=== PATIENT | female | born 1980 | race Caucasian/White ===

== ENCOUNTER 2019-04-13 16:38 | Outpatient (CLI) | payer OTHER, SELFPAY ==
[2019-04-13 17:00] LABS: Hematocrit 42.1 % (37.0-47.0); Hemoglobin 14.2 g/dL (12.0-15.0); Mean Corpuscular HGB Conc 33.7 g/dl (32-36); Mean Corpuscular Hemoglobin 31.3 pg (26-34); Mean Corpuscular Volume 92.7 fl (80-100); Mean Platelet Volume 9.7 fl (7.4-10.4); Platelet Count Result 166 k/mm3 (150-375); Red Blood Count 4.54 M/mm3 (4.2-5.4); Red Cell Distribution Width 11.8 % (11.5-14.5); White Blood Count 6.3 K/mm3 (4.5-10.0)
[2019-04-13 17:11] LABS: Alanine Aminotransferase 25 U/L (4-35); Albumin Level 3.9 g/dL (3.5-5.1); Alkaline Phosphatase 60 U/L (38-126); Aspartate Amino Transferase 26 U/L (14-36); Bilirubin,Total 0.8 mg/dL (0.2-1.3); Blood Urea Nitrogen 14 mg/dL (7-17); Calcium 8.4 mg/dL (8.4-10.2); Carbon Dioxide 21 mmol/L (22-30); Chloride 101 mmol/L (98-107); Estimated Glomerular Filt Rate > 60; Glucose 92 mg/dL (65-105); Lipase 130 U/L (23-300); Potassium 3.7 mmol/L (3.4-5.0); Sodium 135 mmol/L (137-145)
== END 2019-04-13 16:39 | disposition home or self-care (01) ==
LOC: ANHLAB 16:41
PROVIDERS: PCP Family Medicine; Visit Provider Physician Assistant
DX: R10.9 Unspecified abdominal pain (principal)
CPT/HCPCS: 36415; 80053; 83690; 85027

== ENCOUNTER 2020-02-01 14:57 | Outpatient (CLI) | payer OTHER, SELFPAY ==
[2020-02-01 16:00] LABS: Basophils Absolute Auto 0.1 K/mm3 (0.0-0.1); Basophils Percent Auto 0.4 % (0.2-1.2); Eosinophils Percent Auto 0.2 % (0-4.4); Hematocrit 41.7 % (37.0-47.0); Hemoglobin 14.6 g/dL (12.0-15.0); Immature Granulocyte Absolute 0.05 K/mm3 (0.00-0.031); Immature Granulocyte Percent A 0.4 % (0-0.5); Lymphocytes Absolute Auto 1.57 K/mm3 (0.9-3.2); Lymphocytes Percent Auto 11.9 % (18.3-44.2); Mean Corpuscular Hemoglobin 31.8 pg (26-34); Mean Corpuscular Volume 90.8 fl (80-100); Mean Platelet Volume 9.6 fl (7.4-10.4); Monocytes Absolute Auto 0.9 K/mm3 (0.1-0.6); Monocytes Percent Auto 6.9 % (2.6-8.5); Neutrophils Absolute Auto 10.6 K/mm3 (1.3-6.7); Neutrophils Percent Auto 80.2 % (45.5-73.1); Platelet Count Result 210 k/mm3 (150-375); Red Blood Count 4.59 M/mm3 (4.2-5.4); Red Cell Distribution Width 11.3 % (11.5-14.5); White Blood Count 13.2 K/mm3 (4.5-10.0)
[2020-02-01 16:12] LABS: Alanine Aminotransferase 18 U/L (4-35); Albumin Level 4.4 g/dL (3.5-5.1); Alkaline Phosphatase 79 U/L (38-126); Anion Gap 11 mmol/L (8-16); Aspartate Amino Transferase 21 U/L (14-36); Bilirubin,Total 1.1 mg/dL (0.2-1.3); Blood Urea Nitrogen 12 mg/dL (7-17); Calcium 9.7 mg/dL (8.4-10.2); Carbon Dioxide 23 mmol/L (22-30); Chloride 100 mmol/L (98-107); Estimated Glomerular Filt Rate > 60; Glucose 104 mg/dL (65-105); Potassium 4.2 mmol/L (3.4-5.0); Sodium 134 mmol/L (137-145)
== END 2020-02-01 14:58 | disposition home or self-care (01) ==
PROVIDERS: PCP Family Medicine; Visit Provider Nurse Practitioner Family
DX: N39.0 Urinary tract infection, site not specified (principal); R10.9 Unspecified abdominal pain; R31.9 Hematuria, unspecified
CPT/HCPCS: 36415; 80053; 85025; 87077; 87086; 87088; 87186

== ENCOUNTER 2020-02-02 07:57 | Emergency (ER) | payer OTHER, SELFPAY ==
[2020-02-02] VITALS (14 sets, daily range): BP systolic 90–105; BP diastolic 52–69; PULSE 65–108; RESP 15–20; TEMP 36.6; O2SAT 94–98
--- NOTE | ~2020-02-02 | CT_ITS ---
EXAMINATION: CT abdomen pelvis w con DATE: 02/02/2020 09:25 INDICATION: Left upper quadrant abdominal pain. Right flank pain. TECHNIQUE: Computed tomography (CT) of the abdomen and pelvis was performed with 100 mL Omnipaque 350 intravenous contrast. Automated exposure control and iterative reconstruction technique were employe d. The dose-length product was 1130.01 mGy-cm. COMPARISON: None. FINDINGS: The visualized portions of the lung bases demonstrate mild atelectasis. No pleural effusion . The heart size is normal. No pericardial effusion. There is a small sliding hiatal hernia. The live r, gallbladder, spleen, pancreas, adrenal glands, and left kidney are normal. There is moderate atrop hy of the right kidney. There is heterogeneous enhancement of the right kidney, and there is urotheli al thickening in the right renal pelvis, consistent with pyelonephritis. There is asymmetric edema ar ound the right kidney. There is no urolithiasis. The bladder is not well distended. Bladder wall thic kening is noted, consistent with cystitis. There are no dilated loops of bowel. The appendix is alexsander l. There are no pathologically enlarged lymph nodes. There is no free intraperitoneal fluid. There is mild lumbar spondylosis. IMPRESSION: 1. Cystitis and right-sided pyelonephritis. Moderate atrophy of right kidney. 2. Small sliding hiatal hernia. Reviewed, dictated and finalized at location A. MACHINE OPERATOR
--- NOTE | 2020-02-02 08:21 | ED.FEVER ---
HPI - Fever General Chief Complaint: Fever Stated Complaint: fever,low back pain Time Seen by Provider: 02/02/20 07:59 History of Present Illness HPI Narrative: Patient is a 39-year-old female who presents ER with nausea and fever. Patient has been having dysuria and hematuria over last few days. She went and saw her PCP yesterday and symptoms persisted and was diagnosed with a UTI. She was started on ciprofloxacin. She reports 5 fever since being seen by the doctor. She continues to feel nauseated but has not had any vomiting. No chest pain or chest pressure. She reports mild abdominal discomfort in the left quadrant and some mild right flank pain. No alleviating factors for her symptoms. Related Data Allergies Allergy/AdvReac Type Severity Reaction Status Date / Time No Known Allergies Allergy Verified 02/02/20 08:05 Review of Systems Review of Systems: All systems reviewed & are unremarkable except as noted in HPI and below Constitutional: Constitutional: Reports chills, Reports fatigue and Reports fever(s) ENT: Denies nasal congestion and Denies sore throat Cardiovascular: Cardiovascular: Denies chest pain and Denies radiating jaw, neck or arm pain Respiratory: Respiratory: Denies cough, Denies dyspnea and Denies wheezing Gastrointestinal: Gastrointestinal: Reports abdominal pain, Denies constipation, Denies diarrhea, Reports nausea and Denies vomiting Genitourinary: Genitourinary: Reports hematuria, Reports nocturia, Reports dysuria, Reports flank pain and Denies urinary incontinence PMFSH Past Medical History Medical History (Updated 02/02/20 @ 11:21 by Shashi Archuleta MD) Depression BRE (generalized anxiety disorder) Varicose veins of legs Surgical History Surgical History (Updated 02/02/20 @ 08:22 by Shashi Archuleta MD) History of kidney surgery Family History Family History Mother Family history of hypothyroidism Social History Social History (Updated 02/01/20 @ 14:36 by Maritza Jacob) Smoking status: Former smoker Smoking end date: 02/11/17 Alcohol intake: current Substance use: never Gender identity (if verbalized by the patient): Female Exam Narrative: Exam Narrative: GENERAL: Well-appearing, well-nourished, and in no acute distress. HEAD: Normocephalic, atraumatic. CHEST: Clear to auscultation. No respiratory distress. HEART: Regular rate and rhythm. Normal peripheral pulses. ABDOMEN: Soft, mild tenderness left upper quadrant of the abdomen without guarding, nondistended, normal active bowel sounds. Mild right CVA tenderness EXTREMITIES: Normal range of motion. No edema. SKIN: Warm, dry, no rash. NEURO: Alert and oriented x3. PSYCH: Normal mood and affect. 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 Added ceftriaxone here. Recommend continuing Cipro. Will discharge with antiemetics and pain control. Vital Signs Vital signs: Vital Signs Temperature 97.9 F 02/02/20 08:03 Pulse Rate 108 H 02/02/20 08:03 Respiratory Rate 20 02/02/20 08:03 Blood Pressure 101/69 02/02/20 08:03 Pulse Oximetry 97 02/02/20 08:03 Temperature 97.9 F 02/02/20 08:03 Pulse Rate 82 02/02/20 09:41 Respiratory Rate 15 02/02/20 09:41 Blood Pressure 105/54 L 02/02/20 09:41 Pulse Oximetry 95 02/02/20 09:45 MDM - Fever Lab Data Result diagrams: 02/02/20 08:43 02/02/20 08:43 Labs: Lab Results 02/02/20 02/02/20 02/02/20 Range/Units 08:24 08:43 08:43 WBC 16.6 H (4.5-10.0) K/mm3 RBC 4.09 L (4.2-5.4) M/mm3 Hgb 13.2 (12.0-15.0) g/dL Hct 37.4 (37.0-47.0) % MCV 91.4 (80-100) fl MCH 32.3 (26-34) pg MCHC 35.3 (32-36) g/dl RDW 11.4 L (11.5-14.5) % Plt Count 162 (150-375) k/mm3 MPV 9.3 (7.4-10.4) fl Immature Gran % (Auto) 0.7 H (0-0.5) % Neut % (Auto) 85.7 H (45.5-73.1) % Lymph %
[2020-02-02] MEDS: SODIUM CHLORIDE 0.9% IV 1,000 ML 999 ML IV CONT (08:29)
[2020-02-02] MEDS: ONDANSETRON INJ 4 MG/2 ML VIAL IV PUSH (08:29)
[2020-02-02 08:40] LABS: Add Urine Microscopic? YES; Appearance Urine Cloudy (Clear); Bacteria Urine 3+ /hpf; Bilirubin Urine Negative (Negative); Blood Urine 2+ (Negative); Color Urine Amber (Yellow); Glucose Urine UA Negative (Negative); Ketones Urine Negative (Negative); Leukocyte Esterase Ur 1+ LEU/UL (Negative); Mucus Urine Few /lpf; Nitrate Urine Negative (Negative); Protein Urine 2+ mg/dL (Negative); RBC Urine 21-50 /hpf (0-2); Specific Grav Ur 1.025 (1.001-1.035); Squamous Epithelial Cell Urine Many /hpf (Few); WBC Urine >75 /hpf
--- NOTE | 2020-02-02 08:41 | PC.NURSE ---
BLOOD REJECTED FROM SHEREE CORTÉS IN ROOM REDRAWING.
[2020-02-02 08:49] LABS: Basophils Percent Auto 0.2 % (0.2-1.2); Hematocrit 37.4 % (37.0-47.0); Hemoglobin 13.2 g/dL (12.0-15.0); Immature Granulocyte Absolute 0.11 K/mm3 (0.00-0.031); Immature Granulocyte Percent A 0.7 % (0-0.5); Lymphocytes Absolute Auto 0.66 K/mm3 (0.9-3.2); Mean Corpuscular HGB Conc 35.3 g/dl (32-36); Mean Corpuscular Hemoglobin 32.3 pg (26-34); Mean Corpuscular Volume 91.4 fl (80-100); Mean Platelet Volume 9.3 fl (7.4-10.4); Monocytes Absolute Auto 1.6 K/mm3 (0.1-0.6); Monocytes Percent Auto 9.4 % (2.6-8.5); Neutrophils Absolute Auto 14.2 K/mm3 (1.3-6.7); Neutrophils Percent Auto 85.7 % (45.5-73.1); Platelet Count Result 162 k/mm3 (150-375); Red Blood Count 4.09 M/mm3 (4.2-5.4); Red Cell Distribution Width 11.4 % (11.5-14.5); White Blood Count 16.6 K/mm3 (4.5-10.0)
[2020-02-02 09:15] LABS: Anion Gap 9 mmol/L (8-16); Blood Urea Nitrogen 13 mg/dL (7-17); Calcium 8.6 mg/dL (8.4-10.2); Carbon Dioxide 20 mmol/L (22-30); Chloride 105 mmol/L (98-107); Estimated CRCL calculation 82 ml/min; Estimated Glomerular Filt Rate > 60; Glucose 127 mg/dL (65-105); Sodium 134 mmol/L (137-145)
[2020-02-02 09:52] LABS: Potassium 3.3 mmol/L (3.4-5.0)
== END 2020-02-02 11:44 | disposition home or self-care (01) ==
PROVIDERS: Emergency Provider Emergency Medicine; PCP Family Medicine
DX: N12 Tubulo-interstitial nephritis, not specified as acute or chronic (principal); F32.9 Major depressive disorder, single episode, unspecified; F41.9 Anxiety disorder, unspecified
CPT/HCPCS: 36415; 74177; 80048; 81001; 81025; 85025; 96361; 96365; 96375; 99284; J0696; J2405; J7030; Q9967

== ENCOUNTER 2020-07-18 07:19 | Emergency (ER) | payer OTHER, SELFPAY ==
[2020-07-18 07:23] VITALS: BP 120/88; PULSE 69; RESP 20; TEMP 36.3; O2SAT 100
--- NOTE | 2020-07-18 07:34 | ED.ALLEREA ---
HPI - Allergic Reaction General Chief complaint: Allergic Reaction Stated complaint: rash Time Seen by Provider: 07/18/20 07:32 Source: patient and family Mode of arrival: ambulatory Limitations: no limitations History of Present Illness HPI narrative: Patient is a 40-year-old female who presents for evaluation of possible allergic reaction. Patient states that she has had worsening itchiness, swelling in her hands and feet over the past 5 days. Patient states that she has no of abnormal food exposures or no history of food or drug allergies, but has had hives on all of her extremities as well. She denies any cough or shortness of breath. No nausea, vomiting or diarrhea. No history of anaphylaxis. Patient states that she recently had a varicose vein procedure in her left lower leg 5 days ago, as well as Botox injections into her forehead 4 days ago. Patient denies any difficulty with movement. She denies weakness. She does report tingling in her hands and feet. No calf pain. No dry mouth. No blurry vision. Patient does state that she ate a spicy chicken sandwich from [employer] and does not have a history of overeating 1 of those before. She denies any new soaps, lotions or detergents. Related Data Allergies Allergy/AdvReac Type Severity Reaction Status Date / Time No Known Allergies Allergy Verified 07/18/20 07:33 Review of Systems Review of Systems: Narrative: CONSTITUTIONAL: Denies fever, chills, or sweats. EYES: Denies visual changes, redness, or discharge. ENT: Denies rhinorrhea, congestion, sore throat, or otalgia. CARDIOVASCULAR: Denies chest pain, palpitations, or edema. RESPIRATORY: Denies cough or dyspnea. GASTROINTESTINAL: Denies abdominal pain, nausea, vomiting, or diarrhea. GENITOURINARY: Denies dysuria or hematuria. SKIN: Patient reports hives and itching to all extremities MUSCULOSKELETAL: Denies back pain, joint pain, or myalgia. NEUROLOGIC: Denies headache, numbness, or weakness. [facility] Past Medical History Medical History Depression BRE (generalized anxiety disorder) Varicose veins of legs Surgical History Surgical History History of kidney surgery Family History Family History Mother Family history of hypothyroidism Social History Social History Smoking status: Former smoker Smoking end date: 02/11/17 Alcohol intake: current Substance use: never Gender identity (if verbalized by the patient): Female Exam Narrative: Exam Narrative: GENERAL: Awake, alert, conversant HEAD: Normocephalic, atraumatic. EYES: PERRLA and EOMI. ENT: Nares clear, no rhinorrhea or epistaxis. Mucous membranes moist. NECK: Supple. CHEST: No respiratory distress, breathing even and non labored HEART: Regular rate, sinus rhythm ABDOMEN:Non distended, non tender EXTREMITIES: Normal range of motion. Mild, nonpitting edema to the feet, ankles, bilateral hands SKIN: Warm, dry, scattered urticaria to all 4 extremities NEURO:No focal deficits. Alert and oriented x3 Course Vital Signs Vital signs: Vital Signs Temperature 36.3 C L 07/18/20 07:23 Pulse Rate 69 07/18/20 07:23 Respiratory Rate 20 07/18/20 07:23 Blood Pressure 120/88 07/18/20 07:23 Pulse Oximetry 100 07/18/20 07:23 Temperature 36.3 C L 07/18/20 07:23 Pulse Rate 57 L 07/18/20 08:28 Respiratory Rate 18 07/18/20 08:28 Blood Pressure 125/64 07/18/20 08:28 Pulse Oximetry 96 07/18/20 08:28 MDM - Allergic Reaction MDM Narrative Medical decision making narrative: Patient presented for evaluation of hives, itching to all extremities. Patient recently had 2 medical procedures done however they were each greater than 4 days ago, making these types of exposures less likely to be consistent with a
[2020-07-18] MEDS: diphenhydrAMINE HCl INJ 50 MG/ML VIAL 25 MG IV PUSH (08:01)
[2020-07-18] MEDS: FAMOTIDINE 20 MG/2 ML VIAL IV PUSH (08:02)
[2020-07-18] MEDS: methylPREDNISolone SOD SUCC 125 MG VIAL IV PUSH (08:02)
[2020-07-18] MEDS: SODIUM CHLORIDE 0.9% IV 500 ML 999 ML IV CONT (08:02)
[2020-07-18 08:13] LABS: Basophils Percent Auto 0.2 % (0.2-1.2); Eosinophils Absolute Auto 0.1 K/mm3 (0-0.3); Eosinophils Percent Auto 0.7 % (0-4.4); Hemoglobin 14.7 g/dL (12.0-15.0); Immature Granulocyte Absolute 0.03 K/mm3 (0.00-0.031); Immature Granulocyte Percent A 0.3 % (0-0.5); Lymphocytes Absolute Auto 1.82 K/mm3 (0.9-3.2); Lymphocytes Percent Auto 17.9 % (18.3-44.2); Mean Corpuscular HGB Conc 34.2 g/dl (32-36); Mean Corpuscular Hemoglobin 31.7 pg (26-34); Mean Corpuscular Volume 92.9 fl (80-100); Mean Platelet Volume 9.5 fl (7.4-10.4); Monocytes Absolute Auto 0.7 K/mm3 (0.1-0.6); Monocytes Percent Auto 6.8 % (2.6-8.5); Neutrophils Absolute Auto 7.6 K/mm3 (1.3-6.7); Neutrophils Percent Auto 74.1 % (45.5-73.1); Platelet Count Result 219 k/mm3 (150-375); Red Blood Count 4.63 M/mm3 (4.2-5.4); White Blood Count 10.2 K/mm3 (4.5-10.0)
[2020-07-18 08:22] LABS: Anion Gap 10 mmol/L (8-16); Blood Urea Nitrogen 16 mg/dL (7-17); Calcium 9.1 mg/dL (8.4-10.2); Carbon Dioxide 19 mmol/L (22-30); Chloride 109 mmol/L (98-107); Estimated CRCL calculation 102 ml/min; Estimated Glomerular Filt Rate > 60; Glucose 105 mg/dL (65-105); Potassium 4.1 mmol/L (3.4-5.0); Sodium 138 mmol/L (137-145)
[2020-07-18 08:28] VITALS: BP 125/64; PULSE 57; RESP 18; O2SAT 96
[2020-07-18 09:42] VITALS: BP 107/64; PULSE 57; RESP 15; O2SAT 100
== END 2020-07-18 09:47 | disposition home or self-care (01) ==
PROVIDERS: Emergency Provider Emergency Medicine; PCP Family Medicine
DX: L50.0 Allergic urticaria (principal)
CPT/HCPCS: 36415; 80048; 85025; 96361; 96374; 96375; 99284; J1200; J2930; J7040

== ENCOUNTER 2020-12-22 16:52 | Outpatient (CLI) | payer OTHER, SELFPAY ==
[2020-12-22 17:17] LABS: Basophils Percent Auto 0.5 % (0.2-1.2); Eosinophils Absolute Auto 0.1 K/mm3 (0-0.3); Eosinophils Percent Auto 0.9 % (0-4.4); Hematocrit 39.6 % (37.0-47.0); Hemoglobin 13.9 g/dL (12.0-15.0); Immature Granulocyte Absolute 0.03 K/mm3 (0.00-0.031); Immature Granulocyte Percent A 0.4 % (0-0.5); Lymphocytes Absolute Auto 3.09 K/mm3 (0.9-3.2); Lymphocytes Percent Auto 36.6 % (18.3-44.2); Mean Corpuscular HGB Conc 35.1 g/dl (32-36); Mean Corpuscular Hemoglobin 32.9 pg (26-34); Mean Corpuscular Volume 93.6 fl (80-100); Mean Platelet Volume 9.8 fl (7.4-10.4); Monocytes Absolute Auto 0.6 K/mm3 (0.1-0.6); Monocytes Percent Auto 6.9 % (2.6-8.5); Neutrophils Absolute Auto 4.6 K/mm3 (1.3-6.7); Neutrophils Percent Auto 54.7 % (45.5-73.1); Platelet Count Result 197 k/mm3 (150-375); Red Blood Count 4.23 M/mm3 (4.2-5.4); Red Cell Distribution Width 11.8 % (11.5-14.5); White Blood Count 8.5 K/mm3 (4.5-10.0)
[2020-12-22 17:21] LABS: Add Urine Microscopic? YES; Appearance Urine Cloudy (Clear); Bacteria Urine Trace /hpf; Bilirubin Urine Negative (Negative); Blood Urine Negative (Negative); Color Urine Yellow (Yellow); Glucose Urine UA Negative (Negative); Ketones Urine Negative (Negative); Leukocyte Esterase Ur Trace LEU/UL (NEGATIVE); Mucus Urine Rare /lpf; Nitrate Urine Negative (Negative); Protein Urine Negative (Negative); Specific Grav Ur 1.018 (1.001-1.035); Squamous Epithelial Cell Urine Occasional /hpf (Few); Urobilinogen Urine Negative mg/dL (<2.0)
[2020-12-22 17:40] LABS: Alanine Aminotransferase 24 U/L (4-35); Albumin Level 4.2 g/dL (3.5-5.1); Alkaline Phosphatase 54 U/L (38-126); Anion Gap 9 mmol/L (8-16); Aspartate Amino Transferase 26 U/L (14-36); Bilirubin,Total 0.5 mg/dL (0.2-1.3); Blood Urea Nitrogen 18 mg/dL (7-17); Calcium 9.5 mg/dL (8.4-10.2); Carbon Dioxide 23 mmol/L (22-30); Chloride 106 mmol/L (98-107); Estimated Glomerular Filt Rate > 60; Glucose 95 mg/dL (65-110); Potassium 3.9 mmol/L (3.4-5.0); Sodium 138 mmol/L (137-145)
[2020-12-22 18:10] LABS: Thyroid Stimulating Hormone 0.999 uIU/mL (0.465-4.680)
== END 2020-12-22 16:53 | disposition home or self-care (01) ==
LOC: ANHLAB 16:56
PROVIDERS: PCP Family Medicine; Visit Provider Physician Assistant
DX: Z00.00 Encounter for general adult medical examination without abnormal findings (principal); F41.1 Generalized anxiety disorder; F32.9 Major depressive disorder, single episode, unspecified
CPT/HCPCS: 36415; 80053; 81001; 84443; 85025

== ENCOUNTER 2022-04-16 11:55 | Outpatient (CLI) | payer OTHER, SELFPAY ==
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
== END 2022-04-16 11:56 | disposition home or self-care (01) ==
PROVIDERS: PCP Family Medicine; Visit Provider Physician Assistant
DX: M54.50 Low back pain, unspecified (principal); M25.552 Pain in left hip; M51.36 Other intervertebral disc degeneration, lumbar region
CPT/HCPCS: 72110; 73502